=== PATIENT | female | born 1995 | race Caucasian/White ===

== ENCOUNTER 2022-05-01 20:10 | Emergency (ER) | payer OTHER ==
[~2022-05-01 20:10] MED LIST: COLACE 100MG C100 MG PO; IBUPROFEN600 MG PO; WELLBUTRIN 100100 MG PO
[2022-05-01 22:04] LABS: HEMOGLOBIN 13.4 gm/dl (12.3-15.3); RED BLOOD COUNT 4.45 M/UL (4.00-5.10); WHITE BLOOD COUNT 15.7 K/UL (4.5-11.0)
[2022-05-01] MEDS ORDERED: AUGMENTIN XR 11 EACH PO (22:18)
[2022-05-01] MEDS ORDERED: IBUPROFEN600 MG PO (22:20)
[2022-05-01 22:24] LABS: BUN/CREATININE RATIO 18 (0-10)
== END 2022-05-01 23:15 | disposition home or self-care (01) ==
LOC: ER1 20:10
PROVIDERS: Family Medicine
DX: L02.413 Cutaneous abscess of right upper limb (principal); F17.210 Nicotine dependence, cigarettes, uncomplicated
CPT/HCPCS: 10060; 71046; 80053; 83605; 83690; 85025; 87070; 87077; 87186; 87205; 96365; 99283; J0295